=== PATIENT | male | born 1995 | race Caucasian/White ===

== ENCOUNTER → 2017-10-23 | Outpatient (CLI) | payer BC ==
--- NOTE | 2017-10-23 11:05 | Diagnostic Imaging Report ---
PROCEDURE: MRI right joint lower extremity without contrast. TECHNIQUE: Multiplanar, multisequence non contrast-enhanced MRI of the right lower extremity was accomplished. INDICATION: Prior history of knee surgeries. Patient complains of increasing knee pain. COMPARISON: No prior studies are available for comparison. FINDINGS: No joint effusion is identified. There is a septated cystic mass in the posterior knee immediately posterior to the PCL measuring approximately 14 mm cephalocaudal by 17 mm transverse by 12 mm AP. This most likely represents a ganglion. The marrow signal intensity is unremarkable. No geographic marrow lesion or bone bruise is seen. The articular cartilage appears to be intact. No osteochondral lesion is detected. ACL and PCL are intact. The medial and lateral collateral ligament complexes appear intact. The lateral meniscus is intact. The medial meniscus does demonstrate abnormal obliquely oriented signal extending through the posterior horn. Signal does surface superiorly and inferiorly. No displaced meniscal fragment is seen. Extensor mechanism is unremarkable. IMPRESSION: 1. Posterior horn medial meniscus tear. 2. No ligamentous tear is identified. 3. Septated cystic mass posteriorly, suggestive of a ganglion. Dictated by: Dictated on workstation # [id number]
== END ==
LOC: RAD 08:02
PROVIDERS: ATTEND Orthopaedic Surgery
DX: S83.241A Other tear of medial meniscus, current injury, right knee, initial encounter (principal); M85.68 Other cyst of bone, other site
CPT/HCPCS: 73721